=== PATIENT | female | born 1970 | race Hispanic/Latino ===

== ENCOUNTER 2017-01-02 16:29 | Outpatient (CLI) | payer BC ==
--- NOTE | 2017-01-02 18:59 | Cat Scan Report ---
FINAL REPORT PROCEDURE: CT ABDOMEN PELVIS WO CON TECHNIQUE: Computerized axial tomography of the abdomen and pelvis was performed without intravenous contrast. This study is performed without intravascular contrast material and its sensitivity for abdominal and pelvic pathology, including neoplasms, inflammation, abscess, free fluid, thrombosis, arterial dissection and infarction, is reduced compared with a contrast enhanced study. HISTORY: Right renal cyst. Abdominal pain. COMPARISON: No prior studies are available for comparison. FINDINGS: Visualized lower thorax: No significant abnormality. Liver: Normal size and attenuation. Spleen: 8 millimeter low-attenuation lesion off the inferior pole of the spleen with Hounsfield units suggesting simple fluid. Gallbladder and biliary system: Normal. Pancreas: Normal. Adrenals: The left adrenal gland is thickened, without discrete mass lesion. Kidneys: 1.3 centimeter calculus at the right renal pelvis. 6 millimeter calculus in the inferior pole of the right kidney. Subtle stranding changes about the right renal hilum and proximal right ureter. Right hilum and proximal ureter mildly prominent. Possible ill-defined 1.5 centimeter area of low attenuation in the superior/midpole of the right kidney. This may represent dilated calyx. GI tract: Stool throughout the colon. The right colon is displaced across the midline, narrowed as it crosses the midline with the terminal ileal in the left upper quadrant and possible tiny normal air filled appendix. Cecum is moderately distended with air. Limited evaluation on non contrasted examination, no obvious twist to suggest volvulus. Lymph nodes and mesentery: Small bilateral inguinal lymph nodes. Vasculature: Normal. Bladder: Normal. Reproductive organs: Small areas of low attenuation throughout the uterus, the largest in the left aspect of the uterus measures 1 centimeter. Uterus is mildly enlarged and heterogeneous. 5 millimeter area of low attenuation at the uterus cervical junction. Bilateral ovaries appear prominent and have follicles, with dominant 2.4 centimeter area of low attenuation in the left ovary/adnexa. Peritoneum: No free fluid. Musculoskeletal structures: Mild L4-L5 and L5-S1 disc bulges. Small multilevel osteophytes. Moderate endplate changes at the inferior L1 vertebral body. Small 8 millimeter well-circumscribed lucency in the L3 vertebral body, may represent atypical Schmorl's node. Mild degenerative change of the bilateral sacroiliac joints. Other: Small pelvic phleboliths. IMPRESSION: Large calcification at the right renal pelvis. Smaller calcification in the right lower pole. Consider there may be mild obstruction with surrounding stranding changes, with prominence of the right proximal ureter. Cannot exclude infectious/inflammatory process such as pyelonephritis. Low-attenuation lesion, may represent cysts but consider may represent dilated calyx. Consider CT urogram to begin further characterization if there is continued clinical concern. Low-attenuation splenic lesion likely cyst or hemangioma. Thickened left adrenal gland without discrete mass lesion, consider adrenal hyperplasia. Right colon crosses the midline, narrowed as it crosses the midline. Cecum, terminal ilium, and possible tiny air-filled appendix displaced to the left upper quadrant. Cecum is distended and filled. No obvious twist seen to suggest volvulus at this time, but this is a limited evaluation on non contrasted examination. Also consider that there may be an internal hernia and this could predispose to intermittent obstruction. Mildly enlarged heterogeneous uterus with areas of low-attenuation. Consider small nabothian cysts. Bilateral ovarian follicles and possible larger left ovarian cyst. Consider pelvic ultrasound.
== END 2017-01-02 16:30 | disposition home or self-care (01) ==
LOC: CT 16:29
DX: N28.1 Cyst of kidney, acquired (principal); N83.202 Unspecified ovarian cyst, left side; N20.0 Calculus of kidney; R31.9 Hematuria, unspecified; K63.89 Other specified diseases of intestine; M25.78 Osteophyte, vertebrae; N28.89 Other specified disorders of kidney and ureter; N12 Tubulo-interstitial nephritis, not specified as acute or chronic; E27.8 Other specified disorders of adrenal gland; N88.8 Other specified noninflammatory disorders of cervix uteri; I87.8 Other specified disorders of veins
CPT/HCPCS: 74176

== ENCOUNTER 2021-04-02 06:32 | Observation (INO) | payer BC ==
[2021-04-02] MEDS ORDERED: ASPIRIN EC 325 MG TAB PO ONE (07:30)
[2021-04-02 07:32] LABS: Basophils # (Auto) 0.1 K/mm3 (0.0-0.1); Eosinophils # (Auto) 0.2 K/mm3 (0.0-0.4); Eosinophils % (Auto) 2.5 % (0.0-4.3); Hematocrit 46.9 % (30.3-42.9); Hemoglobin 16.5 gm/dl (10.1-14.3); Lymphocytes # (Auto) 3.7 K/mm3 (1.2-5.4); Lymphocytes % (Auto) 39.6 % (13.4-35.0); Mean Corpuscular HGB Conc 35 % (30-34); Mean Corpuscular Volume 98 fl (79-97); Monocytes # (Auto) 0.5 K/mm3 (0.0-0.8); Monocytes % (Auto) 5.4 % (0.0-7.3); Platelet Count 227 K/mm3 (140-440); Red Blood Count 4.81 M/mm3 (3.65-5.03); Red Cell Distribution Width 13.5 % (13.2-15.2)
[2021-04-02 07:43] LABS: Blood Urea Nitrogen 9 mg/dL (7-17); Calcium 9.8 mg/dL (8.4-10.2); Hemolysis Index 12; INR 1.04 (0.87-1.13)
[2021-04-02] MEDS ORDERED: HEPARIN/NS 5000 UNIT/500ML 1,000 ML IR ONE (07:53)
[2021-04-02] MEDS ORDERED: SODIUM CHLORIDE 0.9% 500 ML 500 ML IV SCH (08:00)
[2021-04-02 08:26] LABS: BUN/Creatinine Ratio 15
[2021-04-02] MEDS: LIDOCAINE (2%) 20 MG/1 ML VIAL 20 ML MDV INFILTRATI ONE ×2 (08:48→09:03)
[2021-04-02] MEDS: MIDAZOLAM 2 MG/2 ML INJ ONE ×3 (08:48→09:09)
[2021-04-02] MEDS: fentaNYL 100 MCG/2 ML INJ ONE ×3 (08:48→09:09)
[2021-04-02] MEDS: HEPARIN 10,000 UNITS/10 ML VIAL ONE ×3 (08:49→09:18)
[2021-04-02] MEDS: VERAPAMIL 5 MG/2 ML INJ ONE ×2 (08:49→09:06)
[2021-04-02] MEDS ORDERED: hydrALAZINE 20 MG/1 ML INJ ONE (09:37)
[2021-04-02] MEDS ORDERED: NITROGLYCERIN SYRINGE 3 ML ONE (09:38)
[2021-04-02] MEDS ORDERED: fentaNYL 100 MCG/2 ML INJ ONE (09:40)
[2021-04-02] MEDS ORDERED: MIDAZOLAM 2 MG/2 ML INJ ONE (09:40)
[2021-04-02] MEDS ORDERED: ALUM-MAG HYDROXIDE-SIMETHICONE 200-200-20MG/5ML ORAL LIQD 30 ML ONE (09:42)
[2021-04-02] MEDS ORDERED: CLOPIDOGREL 300 MG TAB ONE ×2 (09:42→11:01)
--- NOTE | 2021-04-02 10:51 | Cardiac Catherization Report ---
DATE OF SERVICE: 04/02/2021 DATE OF PROCEDURE: 04/02/2021. INDICATION: The patient is a 51-year-old white female with history of hypertension, hyperlipidemia, chronic smoking with atypical chest. She was noted to have abnormal stress nuclear imaging with persistent chest pains and scheduled for cardiac catheterization for definitive diagnosis and treatment. The patient is aware of the procedure, potential complications, and alternatives of therapy available. DESCRIPTION OF PROCEDURE: The patient was brought to the catheterization laboratory in a fasting condition. Initially, the patient was prepared for right radial access with a right wrist area being prepared. The patient was evaluated for moderate sedation and was felt to be an appropriate candidate for moderate sedation and was given IV Versed and fentanyl. Subsequently, local anesthesia was given in the right wrist area and right radial artery puncture was made using 21-gauge arterial puncture needle. A 5-Finnish slender sheath was introduced. A 5-Finnish multipurpose catheter was used to obtain the angiograms of the right coronary artery, left coronary artery and left ventriculogram done in HURT projection. Following findings were noted. Aortic pressure 191/91. Left ventricular pressure 199/48 and 199/20. No gradient across the aortic valve. Estimated ejection fraction 65%. LEFT VENTRICULOGRAM: Done in HURT projection showed normal-sized left ventricle with normal contractility. End-diastolic and end-systolic volumes are normal. Mitral regurgitation could not be evaluated because of limited amount of dye injected. RIGHT CORONARY ARTERY: Dominant vessel shows long smooth lesion in the mid to distal RCA, approaching 50-60%. Distal vessel including small PDA and LV branches are small caliber, less than 1.5 mm. Mild irregularities noted distally. LEFT CORONARY ARTERY: Very short left main, immediately dividing into LAD and circumflex branches. LAD and its branches show only very mild irregularities. Circumflex artery showed a focal eccentric more than 90% soft lesion in the mid part. Rest of the LAD showed mild smooth irregularities. COLLATERALS: None. FINAL IMPRESSION: 1. Normal size left ventricle with normal contractility. 2. Severe eccentric mid circumflex lesion, which is focal. The rest of the coronaries showing mild disease. Right coronary artery did show moderate disease, long segment; however, distal vessel is relatively small caliber vessel. Considering the severity and location of the circumflex lesion, it was felt the patient would benefit from intervention of the mid circumflex artery. Procedure was converted to interventional procedure. The patient received IV heparin as the anticoagulant and subsequently, we attempted to advance a 6-Finnish 3.5 EBU guidewire through the radial artery. However, significant spasm and severe pain was noted. Hence, procedure from radial access was aborted and a right femoral access site was prepared with Betadine solution. Local anesthesia was given. Using fluoroscopy, right femoral artery puncture was made using 5-Finnish micropuncture needle. Subsequently, a 6-Finnish sheath was introduced. A 6-Finnish EBU 3.5 guiding catheter was advanced and as mentioned above, the patient was given IV heparin as anticoagulant. Angiogram showed the above-mentioned severe eccentric 90% hazy lesion in the mid circumflex. Hence, a 0.014 inch [place] XT wire was advanced without difficulty into the distal circumflex. Lesion was initially dilated with a 2.75 x 8 mm balloon up to 10 atmospheres with mild in-stent narrowing. This is followed by placement of a 3.0 x 15 mm Greer stent inflated to 12 atmospheres with very good result. Lesion was reduced to 0%. WILL 3 flow was noted pre and post-procedure. No complications of dissection, perforation or distal embolization noted. The patient tolerated the procedure well without any chest pain. The patient did have transient ST elevations during balloon dilation. Final angiogram showed no complications and WILL 3 flow was noted. The patient was monitored throughout the procedure for any side effects from moderate sedation. The patient tolerated moderate sedation well, which started at 8:58 a.m. and ended at 9:49 a.m. No untoward complications noted. The patient is able to breathe normally, moving all the extremities with no focal deficits. Vital signs have been stable. The radial band will be applied in the right radial access site and manual pressure will be applied in the right groin once ACT is less than 200 seconds. At the end of the procedure, the patient is still hypertensive. She will receive hydralazine for controlling the blood pressure and for removal of the sheath. The patient will be given 600 mg of Plavix, will be continued on aspirin in addition to high-intensity statin and antihypertensives including beta teresa. Findings were explained to the patient and her . The patient will be monitored overnight in telemetry. FINAL IMPRESSION: Uncomplicated drug-eluting stent placement of the mid circumflex artery for severe stenosis with abnormal stress thallium and atypical chest pains. The patient does have residual disease in the RCA; however, considering the small caliber of the distal vessel, she will be continued on medical therapy. TID: [id number] RECEIPT: [id number] JOSE L/KATHLEEN OLIVARES
[2021-04-02] MEDS ORDERED: ONDANSETRON 4 MG/2 ML INJ IV SCH (11:00)
[2021-04-02] MEDS ORDERED: HYDROcodone/ACETAMINOPHEN 5-325 MG TAB PO PRN (11:16)
[2021-04-02] MEDS ORDERED: CYCLOBENZAPRINE 10 MG TAB PO SCH (20:20)
[2021-04-02] MEDS: METOPROLOL TARTRATE 50 MG TAB PO SCH (21:09)
[2021-04-03] MEDS ORDERED: CYCLOBENZAPRINE 10 MG TAB PO PRN (01:59)
[2021-04-03 05:39] LABS: Basophils # (Auto) 0.1 K/mm3 (0.0-0.1); Basophils % (Auto) 0.5 % (0.0-1.8); Eosinophils # (Auto) 0.2 K/mm3 (0.0-0.4); Eosinophils % (Auto) 1.8 % (0.0-4.3); Hematocrit 44.3 % (30.3-42.9); Hemoglobin 15.1 gm/dl (10.1-14.3); Lymphocytes # (Auto) 4.4 K/mm3 (1.2-5.4); Lymphocytes % (Auto) 33.9 % (13.4-35.0); Mean Corpuscular HGB Conc 34 % (30-34); Mean Corpuscular Volume 98 fl (79-97); Monocytes # (Auto) 0.8 K/mm3 (0.0-0.8); Monocytes % (Auto) 6.3 % (0.0-7.3); Platelet Count 219 K/mm3 (140-440); Red Blood Count 4.52 M/mm3 (3.65-5.03); Red Cell Distribution Width 13.1 % (13.2-15.2)
[2021-04-03 06:30] LABS: Blood Urea Nitrogen 8 mg/dL (7-17); Calcium 9.5 mg/dL (8.4-10.2); Hemolysis Index 17
[2021-04-03 06:33] LABS: BUN/Creatinine Ratio 16
[2021-04-03 06:47] LABS: Chol/HDL Ratio 9.48 %; HDL Cholesterol 27 mg/dL (40-59); LDL Cholesterol,Direct 201 mg/dL (50-130)
--- NOTE | 2021-04-03 08:05 | XRay Report ---
CHEST 1 VIEW INDICATION: post pci. COMPARISON: None FINDINGS: Support devices: None. Heart: Within normal limits. Lungs/Pleura: No acute air space or interstitial disease. No pleural effusion or pneumothorax. Mild e mphysematous changes are suspected in the upper lobes. Additional findings: None. IMPRESSION: No acute findings. Signer Name: Bernard Batista Jr, MD Signed: 04/03/2021 8:01 AM Workstation Name: [id number]
[2021-04-03] MEDS: METOPROLOL TARTRATE 50 MG TAB PO SCH (09:36)
[2021-04-03] MEDS ORDERED: ASPIRIN 81 MG TAB CHEW PO SCH (10:00)
[2021-04-03] MEDS ORDERED: CLOPIDOGREL 75 MG TAB PO SCH (10:00)
--- NOTE | 2021-04-03 12:50 | Short Stay Summary ---
Short Stay Documentation Date of service: 04/03/21 - History H&P: obtained from office - Allergies and Medications Current Medications: Allergies Ejadvjy-Ixp-Uba Reductase Inhibitor Allergy (Verified 04/02/21 07:31) Unknown Legs cramp Sulfa (Sulfonamide Antibiotics) Adverse Reaction (Verified 11/28/13 06:24) Itching Home Medications Medication Instructions Recorded Confirmed Last Taken Type Cyclobenzaprine [Flexeril 10 MG 10 mg PO PRN PRN 04/02/21 04/02/21 03/29/21 History TAB] 10 mg Metoprolol Xl [Metoprolol 25 mg PO HS 04/02/21 04/02/21 04/01/21 History SUCCINATE ER TAB] 25 mg Nitroglycerin [Nitrostat] 0.4 mg SL PRN PRN 04/02/21 04/02/21 03/29/21 History 0.4mg Active Medications Hydrocodone Bitart/Acetaminophen (Hydrocodone/Acetaminophen 5-325 Mg Tab) 1 each PO Q6H PRN PRN Reason: Pain, Moderate (4-6) Last Admin: 04/02/21 11:57 Dose: 1 each Documented by: Aspirin (Aspirin 81 Mg Tab Chew) 81 mg PO QDAY [facility] Last Admin: 04/03/21 09:37 Dose: 81 mg Documented by: Clopidogrel Bisulfate (Clopidogrel 75 Mg Tab) 75 mg PO QDAY [facility] Last Admin: 04/03/21 09:36 Dose: 75 mg Documented by: Cyclobenzaprine HCl (Cyclobenzaprine 10 Mg Tab) 10 mg PO Q8H PRN PRN Reason: Muscle Spasm Metoprolol Tartrate (Metoprolol Tartrate 50 Mg Tab) 50 mg PO BID [facility] Last Admin: 04/03/21 09:36 Dose: 50 mg Documented by: - Physical exam General appearance: no acute distress Integumentary: other (Right wrist cath site inspected Telfa Tegaderm in place no bleeding or hematoma noted. Right groin cath site inspected Telfa Tegaderm in place no bleeding or hematoma noted.) HEENT: PERRLA Lungs: Normal air movement Heart: Regular rate, Normal S1, Normal S2 Gastrointestinal: normal Extremities: No edema Neurological: Normal speech - Brief post op/procedure progress note Date of procedure: 04/03/21 Pre-op diagnosis: Abnormal stress test, chest pain Post-op diagnosis: other (Coronary artery disease status post NICOLASA) Procedure: LHCsee dictated cath report Anesthesia: local Estimated blood loss: minimal Condition: stable - Disposition Condition at discharge: Good Disposition: DC-01 TO HOME OR SELFCARE - Discharge Diagnoses (1) Coronary artery disease Status: Acute (2) S/P coronary artery stent placement Status: Chronic Short Stay Discharge Plan Activity: advance as tolerated, no driving until cleared by PCP, up only with assistance Diet: low fat, low cholesterol, low salt Wound: open to air, keep clean and dry, per your surgeon's advice Follow up with: RICARDO LI [Other] - 7 Days JUNITO HUDSON MD [Staff Physician] - 7 Days (Patient should follow-up with Dr. Hudson in our [place] office on 04/19/2021 at 2:15 PM. #[id number]) Forms: CardCath PCI D/C Instructions Prescriptions: AtorvaSTATin [Lipitor] 40 mg PO QHS #90 tab Aspirin [Aspirin BABY CHEW TAB] 81 mg PO QDAY #90 tab.chew Metoprolol [Lopressor TAB] 50 mg PO BID #180 tablet Clopidogrel [Plavix] 75 mg PO QDAY #90 tablet
[2021-04-03 13:00] VITALS: BP 106/54
--- NOTE | 2021-04-04 17:18 | Electrocardiograph Report ---
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
--- NOTE | 2021-04-04 17:24 | Electrocardiograph Report ---
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
--- NOTE | 2021-04-04 17:39 | Electrocardiograph Report ---
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
== END 2021-04-03 14:23 | disposition home or self-care (01) ==
LOC: CATHLABREC 06:32 → 4A 11:16
PROVIDERS: ADMIT Internal Medicine; ATTEND Internal Medicine
DX: I25.10 Atherosclerotic heart disease of native coronary artery without angina pectoris (principal); R07.89 Other chest pain; R94.31 Abnormal electrocardiogram [ECG] [EKG]; M47.9 Spondylosis, unspecified; M47.816 Spondylosis without myelopathy or radiculopathy, lumbar region; I10 Essential (primary) hypertension; E78.49 Other hyperlipidemia; R55 Syncope and collapse; E78.5 Hyperlipidemia, unspecified; F17.210 Nicotine dependence, cigarettes, uncomplicated; Z79.82 Long term (current) use of aspirin; Z95.1 Presence of aortocoronary bypass graft
CPT/HCPCS: 36415; 71045; 80048; 80061; 84484; 85025; 85347; 85610; 85730; 93005; 93458; 96361; 96374; C1725; C1769; C1874; C1887; C1894; C9600; G0378; J0360; J1644; J2250; J2405; J3010; J7040; 92928; Q9967

== ENCOUNTER 2021-04-15 06:40 | Emergency (ER) | payer BC ==
[2021-04-15 07:10] LABS: Basophils # (Auto) 0.1 K/mm3 (0.0-0.1); Basophils % (Auto) 0.5 % (0.0-1.8); Eosinophils # (Auto) 0.1 K/mm3 (0.0-0.4); Eosinophils % (Auto) 0.8 % (0.0-4.3); Hematocrit 46.6 % (30.3-42.9); Hemoglobin 16.1 gm/dl (10.1-14.3); Lymphocytes # (Auto) 2.4 K/mm3 (1.2-5.4); Lymphocytes % (Auto) 15.2 % (13.4-35.0); Mean Corpuscular HGB Conc 35 % (30-34); Mean Corpuscular Volume 97 fl (79-97); Monocytes # (Auto) 0.7 K/mm3 (0.0-0.8); Monocytes % (Auto) 4.7 % (0.0-7.3); Platelet Count 298 K/mm3 (140-440); Red Blood Count 4.82 M/mm3 (3.65-5.03); Red Cell Distribution Width 13.2 % (13.2-15.2)
[2021-04-15 07:38] LABS: Alanine Aminotransferase 25 units/L (7-56); Albumin 4.1 g/dL (3.9-5); Blood Urea Nitrogen 9 mg/dL (7-17); Calcium 10.6 mg/dL (8.4-10.2); Hemolysis Index 9
[2021-04-15 07:51] LABS: BUN/Creatinine Ratio 15
--- NOTE | 2021-04-15 08:24 | XRay Report ---
CHEST 2 VIEWS INDICATION: CP. COMPARISON: 04/03/2021 FINDINGS: Support devices: None. Heart: Within normal limits. Lungs/pleura: No acute air space or interstitial disease. No pneumothorax. Additional findings: None. IMPRESSION: No acute findings. Signer Name: Bernard Batista Jr, MD Signed: 04/15/2021 8:20 AM Workstation Name: [id number]
[2021-04-15 08:53] VITALS: BP 164/87
--- NOTE | 2021-04-16 10:20 | Electrocardiograph Report ---
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
== END 2021-04-15 09:29 | disposition left against medical advice (07) ==
LOC: ED 06:40
DX: R13.10 Dysphagia, unspecified (principal); R07.89 Other chest pain; Z53.21 Procedure and treatment not carried out due to patient leaving prior to being seen by health care provider
CPT/HCPCS: 36415; 71046; 80053; 84484; 85025; 93005